=== PATIENT | female | born 1945 | race Caucasian/White ===

== ENCOUNTER 2017-03-09 07:22 | Day surgery (SDC) | payer MEDICARE, BC, SELFPAY | END 2017-03-09 14:48 | disposition home or self-care (01) | PROVIDERS: Visit Provider Internal Medicine | DX: I50.23 Acute on chronic systolic (congestive) heart failure (principal); I27.29 Other secondary pulmonary hypertension | CPT/HCPCS: 80048; 82810; 85025; 93451; 93503; 93568; 99152; C2624; J1644; J2405; Q9967 ==